=== PATIENT | female | born 2005 | race Two or more races ===

== ENCOUNTER 2024-12-12 18:23 | Emergency (ER) | payer OTHER ==
[~2024-12-12] VITALS: Ht 160 cm; Wt 50.3 kg
[2024-12-12] MEDS: AZITHROMYCIN 250 MG TABLET PO ONE (22:34)
[2024-12-12] MEDS ORDERED: IRON65TA2 PO (22:35)
[2024-12-12 22:53] VITALS: BP 130/65; TEMP 97.9; O2SAT 100
[2024-12-12] MEDS ORDERED: AZIT-12 PO (23:33)
== END 2024-12-12 23:37 | disposition home or self-care (01) ==
LOC: M ED 18:23
DX: J15.8 Pneumonia due to other specified bacteria (principal); Z79.2 Long term (current) use of antibiotics

== ENCOUNTER 2025-05-22 13:55 | Emergency (ER) | payer OTHER ==
[~2025-05-22] VITALS: Ht 160 cm; Wt 49.5 kg
[~2025-05-22 13:55] MED LIST: AZIT-12 PO; IRON65TA2 PO
[2025-05-22] MEDS ORDERED: MEDR4PAK PO (19:18)
[2025-05-22 19:32] VITALS: BP 154/78; TEMP 98.2; O2SAT 100
== END 2025-05-22 19:34 | disposition home or self-care (01) ==
LOC: M ED 13:55
DX: M54.50 Low back pain, unspecified (principal); Z79.899 Other long term (current) drug therapy